=== PATIENT | male | born 1990 | race Caucasian/White ===

== ENCOUNTER 2022-05-19 09:26 | Outpatient (CLI) | payer SELFPAY | END 2022-05-19 09:27 | disposition home or self-care (01) | LOC: RT 09:26 | PROVIDERS: ATTEND Nurse Practitioner Family | DX: R05.9 Cough, unspecified (principal) | CPT/HCPCS: 94010 ==

== ENCOUNTER 2022-09-13 13:42 | Outpatient (CLI) | payer SELFPAY ==
[2022-09-13] MEDS ORDERED: DIATRIZOATE MEGLU/DIATRIZO SOD 30 ML BOTTLE PO ONE ×2 (14:00→15:31)
[2022-09-13] MEDS ORDERED: iohexoL-300 100 ML VIAL ONE (14:00)
[2022-09-13] MEDS ORDERED: iohexoL-300 100 ML VIAL IVP ONE (15:31)
--- NOTE | 2022-09-14 08:38 | CT Report ---
PROCEDURE: ABDOMEN/PELVIS W INDICATIONS: RIGHT LOWER QUAD PAIN CONTRAST: 100ml Omnipaque 300 TECHNIQUE: After the administration of oral and IV contrast, 5 mm thick sections acquired from the diaphragms to the symphysis. 5 mm thick coronal and sagittal reformats were acquired. For radiation dose reducti on, the following was used: automated exposure control, adjustment of mA and/or kV according to beti ent size. COMPARISON: CT of abdomen and pelvis without contrast, 05/12/2010. FINDINGS: Image quality: Excellent. ABDOMEN: Lung bases: Lung bases are clear. Heart size is normal. Solid organs: Liver and spleen are normal in size and enhancement. Mild hepatic steatosis. Gallbladd er is normal. Biliary system is non dilated. Pancreas enhances normally. No adrenal nodules. Kidn eys demonstrate normal size and enhancement, without hydronephrosis. Peritoneum and bowel: Appendix is normal. There are a few colonic diverticula. No acute diverticulit is. Bowel loops demonstrate normal wall thickness and caliber. No free fluid or air. Nodes and vessels: No retroperitoneal or mesenteric adenopathy by size criteria. Aorta and inferior vena cava are normal in size. Miscellaneous: No ventral hernias. PELVIS: Genitourinary: Bladder wall thickness is normal. Miscellaneous: No inguinal hernias or adenopathy. Bones: No suspicious bony lesions. No vertebral body compression fractures. IMPRESSION: 1. Appendix is normal. A cause for right lower quadrant pain is not identified. 2. Mild diverticulosis without diverticulitis. Reviewed by: Twin Carroll MD on 09/14/2022 8:37 AM [facility] Approved by: Twin Carroll MD on 09/14/2022 8:37 AM PST Station ID: [id number]
== END 2022-09-13 13:43 | disposition home or self-care (01) ==
LOC: DI 13:42
PROVIDERS: ATTEND Nurse Practitioner Family
DX: R10.31 Right lower quadrant pain (principal); K57.30 Diverticulosis of large intestine without perforation or abscess without bleeding
CPT/HCPCS: 74177; Q9963; Q9967

== ENCOUNTER 2022-09-13 13:45 | Outpatient (CLI) | payer SELFPAY | END 2022-09-13 13:46 | disposition home or self-care (01) | LOC: LAB 13:45 | PROVIDERS: ATTEND Nurse Practitioner Family | DX: R10.31 Right lower quadrant pain (principal) | CPT/HCPCS: 36415; 82565 ==